=== PATIENT | female | born 1955 | race Caucasian/White ===

== ENCOUNTER 2025-01-24 03:51 | Emergency (ER) | payer OTHER ==
[~2025-01-24] VITALS: Ht 162.6 cm; Wt 92.1 kg
[2025-01-24] MEDS ORDERED: KETOROLAC TROMETH 60MG/2ML VIAL IM ONE (04:30)
--- NOTE | 2025-01-24 05:34 | ED.PDOC ---
Back pain HPI HPI Comments PT CAME TO THE ER WITH LEFT KNEE PAIN, PT STATES THAT SHE FELL AT THE AIRPORT X2 WEEKS AGO GETTING INTO A WHEEL CHAIR AND HER LEFT KNEE HIT THE GROUND, PT REPORTS 8/10 PAIN THAT HAS PROGRESSIVLY GOTTEN WORSE. THEY DID AN XRAY AT THE AIRPORT THAT PT STATES WAS CLEAR. PT IS A&OX4, RR EVEN AND REGULAR NO DISTRESS NOTED AT THIS TIME, PT IS ABLE TO AMBULATE SLOWLY WITH A STEADY GAIT Chief Complaint: Lower Extremity Time Seen by MD: 04:06 Reviewed Notes: Nurses Notes, Medications, Allergies Allergies: Coded Allergies: Cephalexin (Verified Allergy, Unknown, 01/24/25) NSAIDs (Verified Allergy, Unknown, 01/24/25) Information Source: Patient Mode of Arrival: Ambulatory Past Medical History PAST MEDICAL HISTORY: Denies Surgical History: Denies all surgeries WEIGHT RECORDER History: No Pertinent WEIGHT RECORDER History Family History Family History: Reviewed,noncontributory to illness Social History Smoker: Non-Smoker Alcohol: Denies ETOH Use Drugs: Denies Drug Use Constitutional: denies: chills, diaphoresis, fatigue, fever, malaise, sweats, weakness, others EENTM: denies: blurred vision, double vision, ear bleeding, ear discharge, ear drainage, ear pain, ear ringing, eye pain, eye redness, hearing loss, mouth pain, mouth swelling, nasal discharge, nose bleeding, nose congestion, nose pain, photophobia, tearing, throat pain, throat swelling, voice changes, others Respiratory: denies: cough, hemoptysis, orthopnea, SOB at rest, shortness of breath, SOB with excertion, stridor, wheezing, others Cardiovascular: denies: chest pain, dizzy spells, diaphoresis, Dyspnea on exertion, edema, irregular heart beat, left arm pain, lightheadedness, palpitations, PND, syncope, others Gastrointestinal: denies: abdomen distended, abdominal pain, blood streaked bowels, constipated, diarrhea, dysphagia, difficulty swallowing, hematemesis, melena, nausea, poor appetite, poor fluid intake, rectal bleeding, rectal pain, vomiting, others Genitourinary: denies: abnormal vagina bleeding, burning, dyspareunia, dysuria, flank pain, frequency, hematuria, incontinence, pain, , vagina discharge, urgency, others Neurological: denies: dizziness, fainting, headache, left sided numbness, left sided weakness, numbness, paresthesia, pre-existing deficit, right sided numbness, right sided weakness, seizure, speech problems, tingling, tremors, weakness, others Musculoskeletal: reports: joint pain, joint swelling; denies: back pain, gout, muscle pain, muscle stiffness, neck pain, others Integumetry: denies: bruises, change in color, change in hair/nails, dryness, laceration, lesions, lumps, rash, wounds, others Allergic/Immunocompromised: denies: Difficulty Healing, Frequent Infections, Hives, Itching, others Hematologic/Lymphatic: denies: anemia, blood clots, easy bleeding, easy br uising, swollen glands, others Endocrine: denies: excessive hunger, excessive sweating, excessive thirst, excessive urination, flushing, intolerance to cold, intolerance to heat, unexplained weight gain, unexplained weight loss, others Psychiatric: denies: anxiety, bipolar disorder, depression, hopeless, panic disorder, schizophrenia, sleepless, suicidal, others Physical Exam General Appearance: No Apparent Distress, Normal HEENT: Pharynx Normal Neck: Full Range of Motion, Non-Tender Respiratory: Lungs Clear, No Respiratory Distress, Normal Breath Sounds Cardiovascular: No Murmur, Normal Peripheral Pulses, Regular Rate/Rhythm Breast Exam: Deferred Gastrointestinal: Non Tender, Soft Genitalia: Deferred Pelvic: Deferred Rectal: Deferred Extremities: No calf tenderness, Normal capillary refill, Normal inspection, Normal range of motion, Non-tender, No pedal edema Musculoskeletal : Location: Left Extremity Location: Knee (TENDERNESS PALPATED OVER ANTERIOR PATELLA NO NOTED ABRASIONS OR LESIONS NOTED SURGICAL SCAR. KNEE WITHOUT NOTED EDEMA NEGATIVE PIERCE'S NEGATIVE DRAWER TEST NEGATIVE BALLOTTEMENT STRENGTH SENSORY MOTION INTACT POSITIVE PEDAL PULSES) Apperance: Normal Neurologic: Alert, No Motor Deficits, Normal Affect, Normal Mood, No Sensory Deficits Cerebellar Function: Normal Reflexes: Normal Skin: Dry, Normal Color, Warm Lymphatic: No Adenopathy Was a procedure done? Was a procedure done?: No Back Pain Differential Dx Differential Diagnosis: Fracture, Musculoskeletal Pain X-Ray, Labs, Meds, VS Vital Signs Date Time Temp Pulse Resp B/P (MAP) Pulse Ox O2 Delivery O2 Flow Rate FiO2 01/24/25 06:02 98.7 71 16 158/82 (107) 100 98.7 6/21/25 04:28 98.1 79 18 153/116 (128) 98 98.1 Current Medications Medications (Trade) Dose Ordered Sig/Tami Route Start Time Stop Time Status Last Admin Dexamethasone Sodium Phosphate (Decadron Injection) 10 mg ONCE ONCE IM 01/24/25 04:30 01/24/25 04:31 DC 01/24/25 06:07 Acetaminophen/ Hydrocodone Bitart ([place] 5/325MG Tab) 1 tab ONCE ONCE PO 01/24/25 04:30 01/24/25 04:31 DC 01/24/25 06:06 X-Ray, Labs, Meds, VS Comment RIGHT KNEE X-RAY SHOWS NO ACUTE FRACTURES OSSEOUS LESIONS DISLOCATIONS DOES SHOW SMALL JOINT EFFUSION. PATIENT GIVEN DECADRON 10 MG IM FOR THE PAIN REPORTS IMPROVEMENT REQUESTING DISCHARGE AT THIS TIME. SCRIPT MEDROL DOSEPAK ADVISED TO TAKE MEDICATIONS PRESCRIBED SIDE EFFECTS DISCUSSED ADVISED ON RICE. ADVISED TO FOLLOW UP WITH HER PCP IN 2-3 DAYS IF SYMPTOMS PERSIST CONSIDER MRI. ER RETURN PRECAUTIONS GIVEN PATIENT INDICATES UNDERSTANDING AND AGREES WITH DISCHARGE PLAN OF CARE. Time of 1ST Reevaluation: 05:27 Reevaluation 1ST: Unchanged Time of 2ND Reevaluation: 06:09 Reevaluation 2ND: Improved Patient Education/Counseling: Diagnosis, Treatment, Prognosis, Need For Follow Up Family Education/Counseling: No Family Present SEPSIS Sepsis Screen Date sepsis recognized/suspect: Jan 24, 2025 Time Sepsis recognized/suspect: 404 Recent Procedure: No On Antibiotic Therapy: No Respiratory Rate >20: No Heart Rate >90: No Temp<36 C (96.8 F) or >38.3 C: No SBP <90 or MAP <65 mmHG: No New Acute Mental Status Change: No Is the patient on CPAP, BIPAP,: No Physician Orders L Knee 3v Xray (01/24/25 04:19) Vital Signs Date Time Temp Pulse Resp B/P (MAP) Pulse Ox O2 Delivery O2 Flow Rate FiO2 01/24/25 06:02 98.7 71 16 158/82 (107) 100 98.7 01/24/25 04:28 98.1 79 18 153/116 (128) 98 98.1 Medications Medications Dose Ordered Sig/Tami Route Start Time Stop Time Status Last Admin Dose Admin Acetaminophen/ Hydrocodone Bitart 1 tab ONCE ONCE PO 01/24/25 04:30 01/24/25 04:31 DC 01/24/25 06:06 Dexamethasone Sodium Phosphate 10 mg ONCE ONCE IM 01/24/25 04:30 01/24/25 04:31 DC 01/24/25 06:07 Departure 1 Departure Time of Disposition: 06:08 Impression: Primary Impression: Contusion of knee, left Qualified Codes: S80.02XA - Contusion of left knee, initial encounter Additional Impression: Effusion of knee joint, left Disposition: 01 HOME / SELF CARE / HOMELESS Condition: Stable e-Prescriptions Methylprednisolone (Medrol Dosepak) 4 Mg Ananda 4 MG PO UD for 6 Days, #21 TAB UAD Prov: LEVAR CHOWDHURY 01/24/25 Discharged With: Self Critical Care Note Critical Care Time?: No Stability Stability form required: LEVAR Cornejo Jan 24, 2025 05:34
[2025-01-24 06:02] VITALS: BP 158/82; PULSE 71; RESP 16; TEMP 98.7; O2SAT 100
--- NOTE | 2025-01-24 06:03 | DVH ---
CLINICAL INDICATION: pain/injury TECHNIQUE: XY L KNEE 3V XRAY Comparison: None FINDINGS/IMPRESSION: : There is no evidence of acute fracture or dislocation. Small joint effusion. Surgical screw fixation of the patella.
[2025-01-24] MEDS: HYDROcodone-ACET 5/325MG TAB PO ONE (06:06)
[2025-01-24] MEDS: DexAMETHasone SOD PHOS 10MG/1ML VIAL INJ IM ONE (06:07)
[2025-01-24] MEDS ORDERED: METH4PAK PO (06:10)
== END 2025-01-24 06:22 | disposition home or self-care (01) ==
LOC: ER 03:54
DX: S80.02XA Contusion of left knee, initial encounter (principal); M25.462 Effusion, left knee; Z79.899 Other long term (current) drug therapy; Z88.6 Allergy status to analgesic agent; Z88.1 Allergy status to other antibiotic agents; X58.XXXA Exposure to other specified factors, initial encounter; Y93.89 Activity, other specified; Y92.89 Other specified places as the place of occurrence of the external cause; Y99.8 Other external cause status
CPT/HCPCS: 73562; 96372; 99283; J1100